=== PATIENT | female | born 1950 | race Caucasian/White ===

== ENCOUNTER → 2018-02-16 08:46 | Outpatient (CLI) | payer MEDICARE, SELFPAY ==
[2018-02-16 09:40] LABS: Absolute Lymphocyte Count 2.96 X10^3/ul (0.83-4.51); Absolute Neutrophil Count 3.3 X10^3/uL (2.0-7.7); Basophil# 0.05 X10^3/uL; Basophil% 0.7 % (0-1); Eosinophil# 0.12 X10^3/uL; Eosinophils% 1.7 % (0-5); Hematocrit 38.7 % (37-47); Hemoglobin 13.1 g/dl (12.0-15.0); Lymphocyte # 2.96 X10^3/ul (4.0); Lymphocyte % 42.5 % (19-41); Mean Corp Hgb Conc 33.9 g/gl (32-36); Mean Corpuscular Hgb 31.9 pg (27.0-32.0); Mean Corpuscular Volume 94.2 fL (81-99); Mean Platelet Vol. 9.9 fl (6.2-12.0); Monocyte# 0.49 X10^3/uL; Neutrophil # 3.34 X10^3/uL (2.7-7.7); Platelet Count 272 K/mm3 (150-450); RBC Distribution Width CV 12.4 % (11.6-14.6); RBC Distribution Width SD 41.9 fl (35.1-43.9); Red Blood Count 4.11 M/mm3 (4.2-5.4)
[2018-02-16 09:46] LABS: POSITIVE COUNT NO; POSITIVE DIFFERENTIAL NO; POSITIVE MORPHOLOGY NO
[2018-02-16 09:55] LABS: Ferritin 417 ng/mL (8-252)
[2018-02-16 10:30] VITALS: BP 139/89; PULSE 82; RESP 16; TEMP 36.2
[2018-02-16 10:50] VITALS: BP 148/86; PULSE 79; RESP 16; TEMP 36.7
== END ==
DX: E83.118 Other hemochromatosis (principal)
CPT/HCPCS: 36415; 82728; 85025; 99195; A4216

== ENCOUNTER → 2018-03-02 09:32 | Outpatient (CLI) | payer MEDICARE, SELFPAY ==
[2018-03-02 10:11] LABS: Absolute Lymphocyte Count 2.75 X10^3/ul (0.83-4.51); Absolute Neutrophil Count 2.6 X10^3/uL (2.0-7.7); Basophil# 0.03 X10^3/uL; Basophil% 0.5 % (0-1); Eosinophil# 0.12 X10^3/uL; Hematocrit 38.1 % (37-47); Hemoglobin 12.6 g/dl (12.0-15.0); Lymphocyte # 2.75 X10^3/ul (4.0); Lymphocyte % 46.8 % (19-41); Mean Corp Hgb Conc 33.1 g/gl (32-36); Mean Corpuscular Hgb 30.8 pg (27.0-32.0); Mean Corpuscular Volume 93.2 fL (81-99); Mean Platelet Vol. 9.7 fl (6.2-12.0); Monocyte# 0.39 X10^3/uL; Monocyte% 6.6 % (0-10); Neutrophil # 2.58 X10^3/uL (2.7-7.7); Neutrophil % 43.9 % (47-70); Platelet Count 263 K/mm3 (150-450); RBC Distribution Width CV 12.7 % (11.6-14.6); RBC Distribution Width SD 42.9 fl (35.1-43.9); Red Blood Count 4.09 M/mm3 (4.2-5.4); White Blood Count 5.9 K/mm3 (4.4-11.0)
[2018-03-02 10:13] LABS: POSITIVE COUNT NO; POSITIVE DIFFERENTIAL NO; POSITIVE MORPHOLOGY NO
[2018-03-02 10:36] VITALS: BP 135/75; PULSE 77; RESP 18; TEMP 36.6; O2SAT 97
[2018-03-02 10:39] VITALS: BMI 42.3
== END ==
PROVIDERS: Visit Provider Internal Medicine Hematology & Oncology
DX: E83.118 Other hemochromatosis (principal)
CPT/HCPCS: 85025; 99195; A4216

== ENCOUNTER → 2018-03-16 09:25 | Outpatient (CLI) | payer MEDICARE, SELFPAY ==
[2018-03-16 10:37] LABS: Absolute Lymphocyte Count 2.45 X10^3/ul (0.83-4.51); Absolute Neutrophil Count 2.4 X10^3/uL (2.0-7.7); Basophil# 0.04 X10^3/uL; Basophil% 0.7 % (0-1); Eosinophil# 0.09 X10^3/uL; Eosinophils% 1.6 % (0-5); Hematocrit 36.1 % (37-47); Hemoglobin 11.9 g/dl (12.0-15.0); Lymphocyte # 2.45 X10^3/ul (4.0); Lymphocyte % 44.8 % (19-41); Mean Corpuscular Hgb 31.3 pg (27.0-32.0); Mean Platelet Vol. 10.2 fl (6.2-12.0); Monocyte# 0.45 X10^3/uL; Monocyte% 8.2 % (0-10); Neutrophil # 2.43 X10^3/uL (2.7-7.7); Neutrophil % 44.5 % (47-70); Platelet Count 234 K/mm3 (150-450); RBC Distribution Width CV 12.5 % (11.6-14.6); RBC Distribution Width SD 41.9 fl (35.1-43.9); White Blood Count 5.5 K/mm3 (4.4-11.0)
[2018-03-16 10:38] LABS: POSITIVE COUNT NO; POSITIVE DIFFERENTIAL NO; POSITIVE MORPHOLOGY NO
[2018-03-16 11:05] VITALS: BP 148/84; PULSE 85; RESP 16; TEMP 36.2; O2SAT 98
== END ==
PROVIDERS: Visit Provider Internal Medicine Hematology & Oncology
DX: E83.118 Other hemochromatosis (principal)
CPT/HCPCS: 85025; 99195; A4216

== ENCOUNTER → 2018-06-15 09:17 | Outpatient (CLI) | payer MEDICARE, SELFPAY ==
[2018-06-15 10:13] LABS: Hemoglobin A1c 7.1 % (4.2-6.3)
[2018-06-15 10:30] LABS: ALB/GLOB Ratio 0.9 RATIO (0.9-2.4); AST(SGOT) 37 U/L (15-37); Alanine Aminotransfer ALT/SGPT 55 U/L (13-56); Albumin, Serum 3.4 g/dL (3.2-5.0); Alkaline Phosphatase 131 U/L (45-117); Anion Gap 8 (5-15); BUN 18 mg/dL (7-18); BUN/Creat Ratio 27.4 RATIO (10-20); Calcium,Total 8.6 mg/dL (8.5-10.1); Chloride 109 mmol/L (98-107); Cholesterol 197 mg/dL (200); Creatinine, Serum 0.66 mg/dL (0.55-1.02); EST Glomerular Filtration Rate 96 mL/min (>60); Est Glom Filt Rate - Afr Amer 116 mL/min (>60); Globulin 3.6 g/dL (2.2-4.2); Glucose 158 mg/dL (74-106); High Density Lipoprotein 48 mg/dL; Potassium 4.2 mmol/L (3.5-5.1); Sodium Level 141 mmol/L (136-145); Triglycerides 176 mg/dL; Very Low Density Lipoprotein 35 mg/dL (5-40)
[2018-06-15 10:37] LABS: Vitamin D,25 Hydroxy 33.2 ng/mL (29.95-100.01)
== END ==
PROVIDERS: Family Provider Family Medicine; PCP Family Medicine; Referring Provider Family Medicine; Visit Provider Family Medicine
DX: E11.9 Type 2 diabetes mellitus without complications (principal); E55.9 Vitamin D deficiency, unspecified
CPT/HCPCS: 36415; 80053; 80061; 82306; 83036

== ENCOUNTER → 2018-12-14 09:32 | Outpatient (CLI) | payer MEDICARE, SELFPAY ==
[2018-08-02 13:08] VITALS: BMI 44.7
[2018-12-14 10:23] LABS: AST(SGOT) 56 U/L (15-37); Alanine Aminotransfer ALT/SGPT 62 U/L (13-56); Albumin, Serum 3.7 g/dL (3.2-5.0); Alkaline Phosphatase 131 U/L (45-117); Anion Gap 7 (5-15); BUN 19 mg/dL (7-18); Calcium,Total 8.9 mg/dL (8.5-10.1); Chloride 112 mmol/L (98-107); Cholesterol 199 mg/dL (200); EST Glomerular Filtration Rate 88 mL/min (>60); Est Glom Filt Rate - Afr Amer 107 mL/min (>60); Globulin 3.8 g/dL (2.2-4.2); Glucose 153 mg/dL (74-106); High Density Lipoprotein 51 mg/dL; Potassium 4.2 mmol/L (3.5-5.1); Protein, Total 7.5 g/dL (6.4-8.2); Sodium Level 142 mmol/L (136-145); Triglycerides 139 mg/dL; Very Low Density Lipoprotein 28 mg/dL (5-40)
[2018-12-14 10:38] LABS: Vitamin D,25 Hydroxy 34.6 ng/mL (29.95-100.01)
== END ==
PROVIDERS: Family Provider Family Medicine; PCP Family Medicine; Referring Provider Family Medicine; Visit Provider Family Medicine
DX: E11.9 Type 2 diabetes mellitus without complications (principal); E78.00 Pure hypercholesterolemia, unspecified; E55.9 Vitamin D deficiency, unspecified
CPT/HCPCS: 36415; 80053; 80061; 82306; 83036

== ENCOUNTER → 2019-06-21 09:27 | Outpatient (CLI) | payer MEDICARE, SELFPAY ==
[2019-02-07 14:15] VITALS: BMI 44.1
[2019-06-21 10:34] LABS: ALB/GLOB Ratio 0.9 RATIO (0.9-2.4); AST(SGOT) 47 U/L (15-37); Alanine Aminotransfer ALT/SGPT 57 U/L (13-56); Albumin, Serum 3.4 g/dL (3.2-5.0); Alkaline Phosphatase 168 U/L (45-117); Anion Gap 7 (5-15); BUN 16 mg/dL (7-18); BUN/Creat Ratio 25.8 RATIO (10-20); Calcium,Total 8.6 mg/dL (8.5-10.1); Chloride 110 mmol/L (98-107); Cholesterol 195 mg/dL (200); Creatinine, Serum 0.62 mg/dL (0.55-1.02); EST Glomerular Filtration Rate 102 mL/min (>60); Est Glom Filt Rate - Afr Amer 124 mL/min (>60); Globulin 3.7 g/dL (2.2-4.2); Glucose 189 mg/dL (74-106); High Density Lipoprotein 57 mg/dL; Potassium 4.1 mmol/L (3.5-5.1); Protein, Total 7.1 g/dL (6.4-8.2); Sodium Level 141 mmol/L (136-145); Triglycerides 133 mg/dL; Very Low Density Lipoprotein 27 mg/dL (5-40)
[2019-06-21 10:41] LABS: Hemoglobin A1c 7.7 % (4.2-6.3)
== END ==
PROVIDERS: Family Provider Family Medicine; PCP Family Medicine; Referring Provider Family Medicine; Visit Provider Family Medicine
DX: E11.9 Type 2 diabetes mellitus without complications (principal); E55.9 Vitamin D deficiency, unspecified; E78.00 Pure hypercholesterolemia, unspecified
CPT/HCPCS: 36415; 80053; 80061; 82306; 83036

== ENCOUNTER → 2019-07-12 11:11 | Outpatient (CLI) | payer MEDICARE, SELFPAY ==
[2019-02-07 14:15] VITALS: BMI 44.1
--- NOTE | 2019-07-12 11:15 | BI_ITS ---
MAMMOGRAPHY - BILATERAL SCREENING REASON FOR EXAM: Female, 69 years old. Routine annual screening examination. PERTINENT HISTORY: Sister with breast cancer. TECHNIQUE: Digital bilateral breast antonio (3D mammographic acquisition) in the CC and MLO projections. 2-D mediolateral oblique (MLO) and craniocaudad (CC) views of both breasts were obtained. CAD: Full Field Digital Mammography with Computer Added Detection was performed. COMPARISON: Comparison is made with prior EXAMINATION dated June 22, 2018. FINDINGS: Breast Composition: There are scattered areas of fibroglandular density. There are no dominant masses or suspicious calcifications. Benign-appearing bilateral axillary lymph nodes. No other significant abnormalities are identified. There has been no significant change since the prior study. BI/SCREEN MAMM (CAD) W/ANTONIO BILAT IMPRESSION: Stable bilateral screening mammogram. Yearly follow-up mammogram recommended. (A) ASSESSMENT CATEGORY: BIRADS Category 2: Benign. A letter regarding these results will be sent to the patient by the facility within 30 days. Approximately 10% of breast cancers are not detected by mammography. A normal mammogram should not delay biopsy of a clinically suspicious abnormality. [id number] Electronically Signed: Jame Iyer, at 9:18 EST , Service support ,
== END ==
PROVIDERS: Family Provider Family Medicine; PCP Family Medicine; Referring Provider Family Medicine; Visit Provider Family Medicine
DX: Z12.31 Encounter for screening mammogram for malignant neoplasm of breast (principal)
CPT/HCPCS: 77063; 77067

== ENCOUNTER → 2020-07-16 10:33 | Outpatient (CLI) | payer MEDICARE, SELFPAY ==
[2020-06-04 14:08] VITALS: BMI 45.2
--- NOTE | 2020-07-16 10:34 | BI_ITS ---
MAMMOGRAPHY - BILATERAL SCREENING REASON FOR EXAM: Female, 70 years old. Routine annual screening examination. PERTINENT HISTORY: Sister with breast cancer. TECHNIQUE: Digital bilateral breast antonio (3D mammographic acquisition) in the CC and MLO projections. 2-D mediolateral oblique (MLO) and craniocaudad (CC) views of both breasts were obtained. CAD: Full Field Digital Mammography with Computer Added Detection was performed. COMPARISON: Comparison is made with prior study dated 07/12/2019. FINDINGS: Breast Composition: There are scattered areas of fibroglandular density. There are no dominant masses or suspicious calcifications. No other significant abnormalities are identified. There has been no significant change since the prior study. BI/SCREEN MAMM (CAD) W/ANTONIO BILAT IMPRESSION: Stable bilateral screening mammogram. Yearly follow-up mammogram recommended. (A) ASSESSMENT CATEGORY: BIRADS Category 1: Negative. A letter regarding these results will be sent to the patient by the facility within 30 days. Approximately 10% of breast cancers are not detected by mammography. A normal mammogram should not delay biopsy of a clinically suspicious abnormality. [id number] Electronically Signed: Jame Iyer, at 11:56 EST , Service support ,
== END ==
PROVIDERS: PCP Family Medicine; Referring Provider Internal Medicine Hematology & Oncology; Visit Provider Internal Medicine Hematology & Oncology
DX: Z12.31 Encounter for screening mammogram for malignant neoplasm of breast (principal); Z80.3 Family history of malignant neoplasm of breast
CPT/HCPCS: 77063; 77067

== ENCOUNTER → 2020-09-03 10:39 | Outpatient (CLI) | payer MEDICARE, OTHER, SELFPAY ==
[2020-06-04 14:08] VITALS: BMI 45.2
[2020-09-03 11:20] LABS: Hemoglobin A1c 7.1 % (3.8-5.6)
[2020-09-03 11:28] LABS: Anion Gap 5 (5-15); BUN 14 mg/dL (7-18); BUN/Creat Ratio 25.5 RATIO (10-20); Calcium,Total 9.1 mg/dL (8.5-10.1); Chloride 110 mmol/L (98-107); Creatinine, Serum 0.55 mg/dL (0.55-1.02); EST Glomerular Filtration Rate 117 mL/min (>60); Est Glom Filt Rate - Afr Amer 142 mL/min (>60); Glucose 147 mg/dL (74-106); Potassium 4.1 mmol/L (3.5-5.1); Sodium Level 140 mmol/L (136-145)
== END ==
PROVIDERS: PCP Family Medicine; Referring Provider Family Medicine; Visit Provider Family Medicine
DX: E11.9 Type 2 diabetes mellitus without complications (principal)
CPT/HCPCS: 36415; 80048; 83036

== ENCOUNTER → 2020-09-16 11:51 | Outpatient (CLI) | payer MEDICARE, SELFPAY ==
[2020-06-04 14:08] VITALS: BMI 45.2
== END ==
PROVIDERS: PCP Family Medicine; Visit Provider Family Medicine
DX: E55.9 Vitamin D deficiency, unspecified (principal)

== ENCOUNTER → 2020-09-24 09:28 | Outpatient (CLI) | payer MEDICARE, SELFPAY ==
[2020-06-04 14:08] VITALS: BMI 45.2
--- NOTE | 2020-09-24 09:32 | BD_ITS ---
STUDY: DUAL ENERGY X-RAY ABSORPTIOMETRY / DXA REASON FOR EXAM: Female, 70 years old. Total hysterectomy age 38. Patient is 252.1# and 62 and quot; a loss of .5 and quot; per pat. Past hx of using an estrogen patch. Type II diabetic and takes metformin and radiance. Does not exercise. Hx of hemochromatosis. TECHNIQUE: Bone Mineral Density (BMD) measurements of lumbar spine and bilateral hips were obtained. COMPARISON: None. FINDINGS: Lumbar Spine (L1-L4): g/cm2 (1.080) / T-score (-0.7) / Z-score (0.9) Findings are suggestive of normal bone density with a low fracture risk. Left Femur Total: g/cm2 (0.911) / T-score (-0.8) / Z-score (0.6) Left Femoral Neck: g/cm2 (0.815) / T-score (-1.6) / Z-score (0.0) Right Femur Total: g/cm2 (0.925) / T-score (-0.7) / Z-score (0.7) Right Femoral Neck: g/cm2 (0.732) / T-score (-2.2) / Z-score (-0.6) BD/Dexa Bone Density Study IMPRESSION: The patient is considered osteopenic as outlined below according to [employer] Organization (WHO) criteria with a high fracture risk. Reference Information: The T-score is the number of standard deviations above or below the standard which is normal for young adults at their peak bone mineral density. The World Health Organization (WHO) interprets the T-scores as follows: Above -1 Normal bone density Between -1 and -2.5 Osteopenia Equal to / or below -2.5 Osteoporosis As a practical clinical guideline, osteopenia may be graded as follows: Mild -1 through -1.5 Moderate -1.6 through -2.0 Severe -2.1 through -2.4 The Z-score is the number of standard deviations above or below age-matched controls. A Z-score of less than -1.5 would be considered abnormal. References: 1. NIH Osteoporosis and Related Bone Diseases www osteo.org 2. International Society for Clinical Densitometry www iscd.org 3. National Osteoporosis Foundation www nof.org Electronically Signed: aJme Iyer MD at 12:49 EST , Service support ,
== END ==
PROVIDERS: PCP Family Medicine; Referring Provider Family Medicine; Visit Provider Family Medicine
DX: Z78.0 Asymptomatic menopausal state (principal)
CPT/HCPCS: 77080

== ENCOUNTER 2020-11-05 10:19 | Outpatient (RCR) | payer MEDICARE, SELFPAY ==
[2020-06-04 14:08] VITALS: BMI 45.2
[2020-11-05] MEDS: COVID-19 VACC, MRNA(PFIZER)/PF 30 MCG/0.3 ML SYRINGE IM (09:26)
[2020-11-26] MEDS: COVID-19 VACC, MRNA(PFIZER)/PF 30 MCG/0.3 ML SYRINGE IM (09:34)
== END 2020-11-05 23:59 ==
LOC: IMMUN 10:19
PROVIDERS: PCP Family Medicine; Visit Provider Family Medicine
DX: Z23 Encounter for immunization (principal)
CPT/HCPCS: 0001A; 0002A

== ENCOUNTER → 2021-06-25 | Outpatient (CLI) | payer MEDICARE, SELFPAY | END | disposition home or self-care (01) | LOC: LABSPEC 09:47 | PROVIDERS: PCP Family Medicine; Referring Provider Physician Assistant Surgical; Visit Provider Physician Assistant Surgical | DX: Z11.52 Encounter for screening for COVID-19 (principal) | CPT/HCPCS: 87635; U0005; U0003 ==

== ENCOUNTER 2021-09-09 08:35 | Outpatient (CLI) | payer MEDICARE, SELFPAY ==
--- NOTE | 2021-09-09 08:37 | BI_ITS ---
MAMMOGRAPHY - BILATERAL SCREENING REASON FOR EXAM: Female, 71 years old. Routine annual screening examination. PERTINENT HISTORY: Sister with breast cancer. TECHNIQUE: Digital bilateral breast antonio (3D mammographic acquisition) in the CC and MLO projections. 2-D mediolateral oblique (MLO) and craniocaudad (CC) views of both breasts were obtained. CAD: Full Field Digital Mammography with Computer Added Detection was performed. COMPARISON: Comparison is made with prior study dated 07/16/2020 and 07/12/2019. FINDINGS: Breast Composition: There are scattered areas of fibroglandular density. There are no dominant masses or suspicious calcifications. No other significant abnormalities are identified. There has been no significant change since the prior study. BI/SCRN MAMM (CAD)W/ANTONIO BILAT IMPRESSION: Stable bilateral screening mammogram. Yearly follow-up mammogram recommended. (A) ASSESSMENT CATEGORY: BIRADS Category 1: Negative. A letter regarding these results will be sent to the patient by the facility within 30 days. Approximately 10% of breast cancers are not detected by mammography. A normal mammogram should not delay biopsy of a clinically suspicious abnormality. [id number] Electronically Signed: Jame Iyer MD at 9:51 EST , Service support ,
== END 2021-09-09 23:59 | disposition short-term general hospital (02) ==
LOC: OPBI 08:36
PROVIDERS: PCP Family Medicine; Referring Provider Family Medicine; Visit Provider Family Medicine
DX: Z12.31 Encounter for screening mammogram for malignant neoplasm of breast (principal)
CPT/HCPCS: 77063; 77067

== ENCOUNTER 2021-09-10 06:31 | Emergency (ER) | payer MEDICARE, SELFPAY ==
[2021-09-10 06:32] VITALS: BP 170/102; PULSE 122; RESP 22; TEMP 35; O2SAT 94; BMI 44.9
--- NOTE | 2021-09-10 06:50 | RAD_ITS ---
STUDY: X-RAY CHEST REASON FOR EXAM: Female, 71 years old. Palpitations TECHNIQUE: Single AP portable view of the chest. There is obesity, the entirety of soft tissue is not imaged. COMPARISON: None. FINDINGS: There are superimposed monitor leads. There is bilateral bronchovascular prominence. Limited penetration mild hazy opacification is nonspecific likely secondary to body habitus. There is no focal parenchymal abnormality. There is no demonstrated pleural abnormality. Normal size heart. Normal mediastinum and sridhar. Normal visualized pulmonary arteries. Normal visualized aortic arch and descending thoracic aorta. There is a mild dextroscoliosis of the thoracic spine. Normal visualized ribs, clavicles, and shoulders. Obesity. Superimposed pannus over the left base. RAD/Chest 1 View (Portable) IMPRESSION: Lateral bronchovascular prominence, mild vascular congestion possible. Limited penetration due to body habitus. Electronically Signed: Christina Davis MD at 7:34 EST , Service support ,
--- NOTE | 2021-09-10 06:50 | EKG12_ITS ---
Test Reason : PALPATATIONS Blood Pressure : / mmHG Vent. Rate : 120 BPM Atrial Rate : 120 BPM P-R Int : 168 ms QRS Dur : 088 ms QT Int : 338 ms P-R-T Axes : 047 041 074 degrees QTc Int : 477 ms Sinus tachycardia Nonspecific ST abnormality Poor R wave progression Abnormal ECG Confirmed by SAROJ ARIAS, WINDY ([id number]), dictionary editor SAY PAGE ([id number]) on 09/15/2021 11:11:34 AM Referred By: SHIRA Confirmed By:WINDY KYLE MD
--- NOTE | 2021-09-10 07:00 | EX.ED.DYSGE1 ---
HPI History of Present Illness Chief Complaint: Palpitations Narrative Narrative: Patient is a 71-year-old female with history of diabetes. She states that she was up late last evening talking to her grandson and after the phone call ate a little bit of a late dinner/midnight snack. She states she was able to go to bed but then woke up with 1 bout of vomiting and 3 loose stools. She states afterwards she felt her heart was racing. She states that this racing sensation has persisted for the past few hours and secondary to a comes in for evaluation. Patient denies any chest pain or shortness of breath associated with this. She denies any recent travel surgery or history of DVT/PE. Patient denies any stimulant use or illicit drug use. [facility] Medical History Abnormal liver function test Basal cell carcinoma Chronic low back pain Fatigue Fatty liver Hereditary hemochromatosis Lipoma Peripheral neuropathy Polycythemia, secondary Proteinuria RIGHT BREAST BIOPSY BENIGN Snoring Type 2 diabetes mellitus Home Medications Vit D3 5,000 iu PO DAILY 03/20/18 [History Last Taken Unknown] glucosamine HCl 1,000 mg PO DAILY 03/20/18 [History Last Taken Unknown] losartan 100 mg PO DAILY 03/20/18 [History Last Taken Unknown] metformin 2,000 mg PO DAILY 03/20/18 [History Last Taken Unknown] Lactobacillus acidophilus 1 ea PO DAILY 10/24/19 [History Last Taken Unknown] Claritin 10 mg PO DAILY PRN PRN 06/04/20 [History Last Taken Unknown] Nasacort 1 inh NASAL DAILY PRN 06/04/20 [History Last Taken Unknown] empagliflozin 10 mg tablet 10 mg PO DAILY 06/10/21 [History Last Taken Unknown] Allergy/AdvReac Type Severity Reaction Status Date / Time ezetimibe [From Zetia] AdvReac Severe Other Verified 09/10/21 06:35 pioglitazone [From Actos] AdvReac Severe Other Verified 09/10/21 06:35 Family History Sister Esophageal cancer Grandmother Lung cancer Father Liver cancer Mother Liver cancer Surgical History History of basal cell carcinoma excision History of hysterectomy History of tonsillectomy Social History (Updated 06/10/21 @ 14:45 by Dianelys Rojas) Smoking Status: Never smoker second hand exposure: No alcohol intake: never substance use type: does not use yara/gnosticism: Gnosticist seatbelt use: always do you feel safe at home: Yes ROS ROS ED Constitutional Constitutional ED: Denies chills or fever(s) ENT ENT ED: Denies sore throat Cardiovascular Cardiovascular: Reports palpitations and racing heartbeat; Denies chest pain Respiratory/Chest Respiratory/Chest: Denies cough or dyspnea Gastrointestinal Gastrointestinal: Reports diarrhea, nausea and vomiting; Denies abdominal pain Genitourinary Genitourinary ED: Denies dysuria Musculoskeletal Musculoskeletal: Denies myalgias Integumentary Denies rash Neurologic Neurologic: Denies headache(s) Psychiatric Psychiatric: Reports anxiety; Denies suicidal ideation or suicidal thoughts Hematologic/Lymphatic Hematologic/Lymphatic: Denies easy bleeding or easy bruising EXAM Physical Exam Const Vital Signs: 09/10/21 06:32 09/10/21 06:36 Temperature 95 F L Temperature Source Temporal Pulse Rate 122 H Respiratory Rate 22 H Respiratory Effort Normal Respiratory Pattern Tachypnea Blood Pressure 170/102 H Blood Pressure Mean 124 Pulse Ox 94 Oxygen Delivery Method Room Air Positive well nourished, well developed and obese General Appearance ED: well developed Nutritional Appearance: obese HEENT Reports dry mucous membranes Mouth ED: Yes dry mucous membranes Mouth: dry mucous membranes Eyes PERRL and EOMs intact bilaterally General Eye ED: Negative for pale conjunctiva Neck supple Resp normal respiratory effort and clear to auscultation bilaterally Cardio regular rhythm Rate: tachycardic and other Other Details: Radial pulses are plus 2 out of 4 bilaterally are equal and symmetric GI normal to inspection, nondistended, normoactive bowel sounds, non-tender, non-distended and no masses GI Narrative: No voluntary guarding or rigidity no pulsatile mass Auscultation: normoactive bowel sounds Palpation: soft Extremity Extremity Narrative: Trace to +1 pitting edema to the bilateral lower extremities that is equal and symmetric. Negative Homans' sign bilaterally Neuro oriented x3 and CN's II-XII intact bilaterally Sensorium / Orientation: alert Motor Exam: strength 5/5 throughout Psych Psych Narrative: Patient is mildly anxious without homicidal or suicidal ideation Mood & Affect: anxious Skin no rashes or lesions noted MDM MDM MDM Narrative Medical decision making narrative: Patient presented to the hospital complaining of palpitations and was going approximate 120 bpm but this was normal sinus rhythm. Her exam shows some changes concerning for mild dehydration and she also seems mildly anxious. Secondary to this I did elect to perform basic laboratory studies. She does not have chest pain or pleuritic chest pain to therefore I feel no need for a D-dimer. Patient also has no history of surgery travel hormone use or previous DVT/PE. Therefore at this time patient be given a liter of fluid to correct the dehydration and see how this improves her heart rate while laboratory studies are pending. I feel that if work-up is negative and heart rate is improving patient should be safe for discharge Lab Data Labs: Laboratory Results - last 24 hr 09/10/21 06:38 WBC 10.8 RBC 4.91 Hgb 15.1 H Hct 46.8 MCV 95.3 MCH 30.8 MCHC 32.3 RDW Std Deviation 47.3 H RDW Coeff of Barrie 13.3 Plt Count 307 MPV 9.7 Immature Gran % (Auto) 0.500 Neut % (Auto) 56.6 Lymph % (Auto) 36.3 [place] % (Auto) 5.2 Eos % (Auto) 0.6 Baso % (Auto) 0.8 Absolute Neuts (auto) 6.1 Absolute Lymphs (auto) 3.93 Nucleated RBC % 0 Discharge Plan Triage Chief Complaint: Palpitations ED Provider: Inder Tran Dx/Rx/DC Orders Clinical Impression: Palpitations, Sinus tachycardia Prescriptions: No Action Jardiance 10 mg tablet 10 mg PO DAILY RF: 0 metformin 500 MG tablet 2,000 mg PO DAILY RF: 0 losartan 100 MG tablet 100 mg PO DAILY RF: 0 glucosamine HCl 1,500 MG tablet 1,000 mg PO DAILY RF: 0 Vit D3 5,000 iu PO DAILY RF: 0 Lactobacillus acidophilus 1 EACH tablet 1 ea PO DAILY RF: 0 Claritin 10 mg PO DAILY PRN PRN (Reason: Allergies) RF: 0 Nasacort Howard 1 inh NASAL DAILY PRN (Reason: Allergies) RF: 0 Primary Care Provider: Ayana Valentien Referrals: Ayana Valentine, [Primary Care Provider] -
[2021-09-10 07:03] LABS: Absolute Lymphocyte Count 3.93 X10^3/uL (0.83-4.51); Absolute Neutrophil Count 6.1 X10^3/uL (2.0-7.7); Basophil# 0.09 X10^3/uL; Basophil% 0.8 % (0-1); Eosinophil# 0.07 X10^3/uL; Eosinophils% 0.6 % (0-5); Hematocrit 46.8 % (37-47); Hemoglobin 15.1 g/dL (12.0-15.0); Lymphocyte # 3.93 X10^3/ul (0.83-4.51); Lymphocyte % 36.3 % (19-41); Mean Corp Hgb Conc 32.3 g/dL (32-36); Mean Corpuscular Hgb 30.8 pg (27.0-32.0); Mean Corpuscular Volume 95.3 fL (81-99); Mean Platelet Vol. 9.7 fl (6.2-12.0); Monocyte# 0.56 X10^3/uL; Monocyte% 5.2 % (0-10); NRBC Flagged by Analyzer 0 % (0-5); Neutrophil # 6.12 X10^3/uL (2.7-7.7); Neutrophil % 56.6 % (47-70); Platelet Count 307 K/mm3 (150-450); RBC Distribution Width CV 13.3 % (11.6-14.6); RBC Distribution Width SD 47.3 fl (35.1-43.9); Red Blood Count 4.91 M/mm3 (4.2-5.4); White Blood Count 10.8 K/mm3 (4.4-11.0)
[2021-09-10] MEDS: 0.9% Normal Saline 1,000 ML 999 ML IV (07:10)
[2021-09-10 07:29] LABS: Anion Gap 12 (5-15); BUN 18 mg/dL (7-18); BUN/Creat Ratio 21.4 RATIO (10-20); Chloride 108 mmol/L (98-107); Creatinine, Serum 0.84 mg/dL (0.55-1.02); EST Glomerular Filtration Rate 71 mL/min (>60); Est Glom Filt Rate - Afr Amer 86 mL/min (>60); Estimated Creatinine Clearance 52.29 ml/min; Glucose 209 mg/dL (74-106); Magnesium 2.2 mg/dL (1.6-2.6); Potassium 3.3 mmol/L (3.5-5.1); Sodium Level 143 mmol/L (136-145); Thyroid Stim Hormone (TSH) 1.45 uIU/mL (0.358-3.74); Troponin-I HS 8 pg/mL (3.0-54.0)
[2021-09-10] MEDS: Potassium Chloride Oral Tablet 20 MEQ 40 MEQ PO (07:54)
[2021-09-10 08:33] VITALS: BP 159/89; PULSE 112; RESP 19; O2SAT 93
[2021-09-10 08:38] VITALS: O2SAT 93
--- NOTE | 2021-09-10 08:38 | ED.RN ---
ambulated pt, pt states i feel good.
== END 2021-09-10 09:10 | disposition home or self-care (01) ==
PROVIDERS: Emergency Provider Emergency Medicine; PCP Family Medicine; Visit Provider Emergency Medicine
DX: R00.2 Palpitations (principal); R00.0 Tachycardia, unspecified; E66.9 Obesity, unspecified
CPT/HCPCS: 71045; 80048; 83735; 84443; 84484; 85025; 93005; 96360; 99284

== ENCOUNTER → 2022-06-10 | Outpatient (CLI) | payer MEDICARE, SELFPAY ==
[2022-06-10 09:54] LABS: Microalbumin,Random Urine 6.7 mg/L (NO RANGE EST.); Microalbumin:Creatinine Ratio 8.9 mg/g CRE (<30 mg/g CRE)
[2022-06-10 10:22] LABS: ALB/GLOB Ratio 0.8 RATIO (0.9-2.4); AST(SGOT) 50 U/L (15-37); Alanine Aminotransfer ALT/SGPT 57 U/L (13-56); Albumin, Serum 3.3 g/dL (3.2-5.0); Alkaline Phosphatase 147 U/L (45-117); Anion Gap 10 (5-15); BUN 15 mg/dL (7-18); BUN/Creat Ratio 23.7 RATIO (10-20); Calcium,Total 8.9 mg/dL (8.5-10.1); Chloride 111 mmol/L (98-107); Cholesterol 220 mg/dL (200); Creatinine, Serum 0.63 mg/dL (0.55-1.02); EST Glomerular Filtration Rate 99 mL/min (>60); Est Glom Filt Rate - Afr Amer 120 mL/min (>60); Ferritin 249 ng/mL (8-252); Globulin 3.9 g/dL (2.2-4.2); Glucose 158 mg/dL (74-106); High Density Lipoprotein 64 mg/dL; Protein, Total 7.2 g/dL (6.4-8.2); Sodium Level 143 mmol/L (136-145); Triglycerides 136 mg/dL; Very Low Density Lipoprotein 27 mg/dL (5-40)
== END | disposition home or self-care (01) ==
LOC: LAB 08:58
PROVIDERS: PCP Family Medicine; Visit Provider Family Medicine
DX: E11.9 Type 2 diabetes mellitus without complications (principal); E55.9 Vitamin D deficiency, unspecified; E78.00 Pure hypercholesterolemia, unspecified
CPT/HCPCS: 36415; 80053; 80061; 82043; 82306; 82570; 82728

== ENCOUNTER → 2022-09-23 | Outpatient (CLI) | payer MEDICARE, SELFPAY ==
--- NOTE | 2022-09-23 09:07 | BI_ITS ---
MAMMOGRAPHY - BILATERAL SCREENING REASON FOR EXAM: Female, 72 years old. Routine annual screening examination. PERTINENT HISTORY: Sister with breast cancer. TECHNIQUE: Digital bilateral breast antonio (3D mammographic acquisition) in the CC and MLO projections. 2-D mediolateral oblique (MLO) and craniocaudad (CC) views of both breasts were obtained. CAD: Full Field Digital Mammography with Computer Added Detection was performed. COMPARISON: Comparison is made with prior study of SEP 09 2021 and 07/16/2020. FINDINGS: Breast Composition: There are scattered areas of fibroglandular density. There are no dominant masses or suspicious calcifications. Stable small benign appearing bilateral axillary lymph nodes. No other significant abnormalities are identified. There has been no significant change since the prior study. BI/SCREEN MAMM (CAD) W/ANTONIO UNI L IMPRESSION: Stable bilateral screening mammogram. Yearly follow-up mammogram recommended. (A) ASSESSMENT CATEGORY: BIRADS Category 2: Benign. A letter regarding these results will be sent to the patient by the facility within 30 days. Approximately 10% of breast cancers are not detected by mammography. A normal mammogram should not delay biopsy of a clinically suspicious abnormality. [id number] Electronically Signed: Jame Iyer MD at 10:10 EST ,
== END | disposition home or self-care (01) ==
PROVIDERS: PCP Family Medicine; Visit Provider Family Medicine
DX: Z12.31 Encounter for screening mammogram for malignant neoplasm of breast (principal); Z80.3 Family history of malignant neoplasm of breast
CPT/HCPCS: 77063; 77067

== ENCOUNTER → 2022-12-07 | Outpatient (CLI) | payer MEDICARE, SELFPAY ==
[2022-12-07 09:39] LABS: Absolute Lymphocyte Count 3.04 X10^3/uL (0.83-4.51); Absolute Neutrophil Count 2.6 X10^3/uL (2.0-7.7); Basophil# 0.08 X10^3/uL; Basophil% 1.2 % (0-1); Eosinophil# 0.23 X10^3/uL; Eosinophils% 3.5 % (0-5); Hematocrit 45.3 % (37-47); Hemoglobin 15.1 g/dL (12.0-15.0); Lymphocyte # 3.04 X10^3/ul (0.83-4.51); Mean Corp Hgb Conc 33.3 g/dL (32-36); Mean Corpuscular Hgb 31.8 pg (27.0-32.0); Mean Corpuscular Volume 95.4 fL (81-99); Mean Platelet Vol. 9.8 fl (6.2-12.0); Monocyte# 0.64 X10^3/uL; Monocyte% 9.7 % (0-10); NRBC Flagged by Analyzer 0 % (0-5); Neutrophil # 2.61 X10^3/uL (2.7-7.7); Neutrophil % 39.4 % (47-70); Platelet Count 224 K/mm3 (150-450); RBC Distribution Width CV 12.8 % (11.6-14.6); RBC Distribution Width SD 45.8 fl (35.1-43.9); Red Blood Count 4.75 M/mm3 (4.2-5.4); White Blood Count 6.6 K/mm3 (4.4-11.0)
[2022-12-07 10:37] LABS: ALB/GLOB Ratio 0.8 RATIO (0.9-2.4); AST(SGOT) 51 U/L (15-37); Alanine Aminotransfer ALT/SGPT 50 U/L (13-56); Albumin, Serum 3.1 g/dL (3.2-5.0); Alkaline Phosphatase 149 U/L (45-117); Anion Gap 9 (5-15); BUN 14 mg/dL (7-18); BUN/Creat Ratio 24.2 RATIO (10-20); Calcium,Total 8.9 mg/dL (8.5-10.1); Chloride 109 mmol/L (98-107); Cholesterol 226 mg/dL (200); Creatinine, Serum 0.58 mg/dL (0.55-1.02); EST Glomerular Filtration Rate 109 mL/min (>60); Est Glom Filt Rate - Afr Amer 132 mL/min (>60); Ferritin 242 ng/mL (8-252); Globulin 3.7 g/dL (2.2-4.2); Glucose 162 mg/dL (74-106); High Density Lipoprotein 55 mg/dL; Iron 159 ug/dL (50-170); Iron Binding Capacity,Total 288 ug/dL (250-450); PERCENT IRON SATURATION 55.2 % (15.0-55.0); Potassium 3.9 mmol/L (3.5-5.1); Protein, Total 6.8 g/dL (6.4-8.2); Sodium Level 140 mmol/L (136-145); Triglycerides 150 mg/dL; Very Low Density Lipoprotein 30 mg/dL (5-40)
[2022-12-07 10:46] LABS: Vitamin D,25 Hydroxy 58.7 ng/mL
== END | disposition home or self-care (01) ==
LOC: PAVLAB 09:14
PROVIDERS: PCP Family Medicine; Referring Provider Family Medicine; Visit Provider Family Medicine
DX: E55.9 Vitamin D deficiency, unspecified (principal); E11.65 Type 2 diabetes mellitus with hyperglycemia; E78.00 Pure hypercholesterolemia, unspecified
CPT/HCPCS: 36415; 80053; 80061; 82306; 82728; 83036; 83540; 83550; 85025

== ENCOUNTER 2023-05-10 15:25 | Emergency (ER) | payer MEDICARE, SELFPAY ==
[2023-05-10 15:26] VITALS: BP 164/84; PULSE 117; RESP 18; TEMP 36.7; O2SAT 97; BMI 45.4
--- NOTE | 2023-05-10 15:48 | ED.VIS.GI ---
HPI HPI - GI History of Present Illness Chief Complaint: Abd Pain Informant: patient Abdominal Pain/Flank Pain Onset: Today Context: Sudden Onset Timing: Continuous Quality: Sharp Location: Epigastric, RUQ and LUQ Worsened by: Food and - (Deep breathing) Relieved by: Nothing Nausea/Vomiting/Emesis GI Symptom: Positive for Nausea; Negative for Vomiting Diarrhea/Melena/Hematochezia GI Symptom: Positive for Diarrhea; Negative for Melena or Hematochezia Associated Symptoms Associated Symptoms: Negative for Dysuria, Frequency or Urgency Narrative Narrative: Patient presents with abdominal pain that began today. Patient states it came on rather suddenly. Patient states that began approxi-20 minutes after eating. Patient states the pain is mainly over the right upper abdomen but radiates to the epigastric and notably into the left upper abdomen. Patient states the pain is worse with deep breathing. Patient states nothing makes it better. Patient admits to some nausea but denies any vomiting. Patient admits to some diarrhea but denies any melena or hematochezia. Patient states her diarrhea is loose. Patient states she has a history of IBS, diarrhea type. Patient also admits to some mild pain in her right shoulder. [facility] Medical History Abnormal liver function test Basal cell carcinoma Chronic low back pain Fatigue Fatty liver Hereditary hemochromatosis Lipoma Peripheral neuropathy Polycythemia, secondary Proteinuria RIGHT BREAST BIOPSY BENIGN Snoring Type 2 diabetes mellitus Home Medications Vit D3 5,000 iu PO DAILY 03/20/18 [History Last Taken Unknown] glucosamine HCl 1,500 mg tablet 1,000 mg PO DAILY 03/20/18 [History Last Taken Unknown] losartan 100 mg tablet 100 mg PO DAILY 03/20/18 [History Last Taken Unknown] metformin 500 mg tablet 2,000 mg PO DAILY 03/20/18 [History Last Taken Unknown] Lactobacillus acidophilus 2 billion cell tablet 1 ea PO DAILY 10/24/19 [History Last Taken Unknown] Claritin 10 mg PO DAILY PRN PRN Allergies 06/04/20 [History Last Taken Unknown] Nasacort 1 inh DAILY PRN Allergies 06/04/20 [History Last Taken Unknown] empagliflozin 10 mg tablet (Jardiance) 10 mg PO DAILY 06/10/21 [History Last Taken Unknown] omeprazole 20 mg capsule,delayed release 20 mg PO DAILY #30 CAPSULES 05/10/23 [Rx Last Taken Unknown] Allergy/AdvReac Type Severity Reaction Status Date / Time ezetimibe [From Zetia] AdvReac Severe Other Verified 05/10/23 15:26 pioglitazone [From Actos] AdvReac Severe Other Verified 05/10/23 15:26 Family History Sister Esophageal cancer Grandmother Lung cancer Father Liver cancer Mother Liver cancer Surgical History History of basal cell carcinoma excision History of hysterectomy History of tonsillectomy Social History Smoking Status: Never smoker second hand exposure: No alcohol intake: never substance use type: does not use yara/rastafari: Sikhism seatbelt use: always do you feel safe at home: Yes ROS ROS ED Constitutional Constitutional ED: Denies chills or fever(s) Eyes Eyes: Denies blurry vision or change in vision ENT ENT ED: Denies rhinorrhea or sore throat Cardiovascular Cardiovascular: Denies chest pain or palpitations Respiratory/Chest Respiratory/Chest: Denies cough or dyspnea Gastrointestinal Gastrointestinal: Reports abdominal pain, diarrhea and nausea; Denies vomiting Genitourinary Genitourinary ED: Denies dysuria or hematuria Musculoskeletal Musculoskeletal: Denies back pain or neck pain Integumentary Denies abscess or rash Neurologic Neurologic: Denies headache(s) or weakness Allergic/Immunologic Allergic/Immunologic ED: Denies mouth swelling or urticaria EXAM Physical Exam Const Vital Signs: 05/10/23 15:26 Temperature 98.1 F Temperature Source Temporal Pulse Rate 117 H Respiratory Rate 18 Blood Pressure 164/84 H Blood Pressure Mean 110 Pulse Ox 97 Oxygen Delivery Method Room Air Positive well nourished, well developed and obese General Appearance ED: well developed and NAD Nutritional Appearance: obese HEENT Reports moist mucous membranes Neck supple and no JVD Resp normal respiratory effort and clear to auscultation bilaterally Cardio regular rate and regular rhythm GI Auscultation: normoactive bowel sounds Palpation: soft and tender epigastric, LUQ and RUQ; Negative for guarding or rebound tenderness present Extremity full ROM Neuro CN's II-XII intact bilaterally, moves all extremities and no sensory deficits noted Sensorium / Orientation: alert Motor Exam: strength 5/5 throughout Psych mental status grossly normal MDM MDM MDM Narrative Medical decision making narrative: Differential diagnosis includes gastritis, peptic ulcer disease, duodenal ulcer, pancreatitis, cholecystitis, cholelithiasis, bowel obstruction, pyelonephritis, and urinary tract infection. CBC will be obtained to assess for leukocytosis and anemia. Comprehensive metabolic profile will be obtained to assess for hepatic function, renal function, and electrolyte abnormality. Lipase will be obtained to assess for pancreatitis. Urinalysis will be obtained to assess for urinary tract infection. Right upper quadrant ultrasound will be obtained to assess for cholecystitis and cholelithiasis. History & Record Review Discussion w/independent historian: Patient Additional record(s) reviewed:: Prior labs Lab Data Attestation: I reviewed the patient's lab results. Lab results narrative: CBC was reviewed and was within normal limits. Comprehensive metabolic profile was reviewed. Glucose was elevated at 268. CO2 was slightly low at 19. Anion gap was normal. Alkaline phosphatase was slightly elevated at 138 and AST was slightly elevated at 38. Total bilirubin was normal. ALT was normal. Lipase was reviewed and was normal. Urinalysis was reviewed. There is a leukocyte esterase of 100 with 5-10 white blood cells. There were 10-25 epithelial cells. Labs: Laboratory Results - last 24 hr 05/10/23 05/10/23 15:52 17:39 WBC 9.7 RBC 4.26 Hgb 13.5 Hct 42.1 MCV 98.8 MCH 31.7 MCHC 32.1 RDW Std Deviation 46.2 H RDW Coeff of Barrie 12.9 Plt Count 275 MPV 10.3 Immature Gran % (Auto) 0.200 Neut % (Auto) 55.6 Lymph % (Auto) 35.1 [place] % (Auto) 7.6 Eos % (Auto) 0.9 Baso % (Auto) 0.6 Absolute Neuts (auto) 5.4 Absolute Lymphs (auto) 3.39 Nucleated RBC % 0 Sodium 140 Potassium 3.9 Chloride 111 H Carbon Dioxide 19.0 L Anion Gap 10 BUN 17 Creatinine 0.78 Estim Creat Clear Calc 43.30 Est GFR (MDRD) Af Amer 93 Est GFR (MDRD) Non-Af 77 BUN/Creatinine Ratio 21.7 H Glucose 268 H Calcium 8.6 Total Bilirubin 0.70 AST 38 H ALT 43 Alkaline Phosphatase 138 H Total Protein 6.5 Albumin 3.0 L Globulin 3.5 Albumin/Globulin Ratio 0.9 Lipase 38 Urine Color Yellow Urine Clarity Sl. Cloudy Urine pH 5.0 Ur Specific [place] 1.010 Urine Protein 15 H Urine Glucose (UA) 1000 H Urine Ketones Negative Urine Occult Blood 10 H Urine Nitrite Negative Urine Bilirubin Negative Urine Urobilinogen Normal Ur Leukocyte Esterase 100 H Urine RBC Not Reportable Urine WBC 5-10 SEEN Ur Squamous Epith Cells 10-25 SEEN Urine Bacteria 0 SEEN Urine Mucus 0 SEEN Radiography Diagnostic Testing: Clinical Impression(s) from Imaging Studies Gallbladder Ultrasound 05/10/23 15:58 IMPRESSION: Diffuse fatty liver with superimposed cirrhosis not excluded, correlation with liver function tests recommended. Mild ascites. No gallstones or signs of acute cholecystitis. Right upper renal pole simple cyst measuring 3.0 cm, remainder of the right upper quadrant ultrasound unremarkable. Electronically Signed: Nevaeh Kee MD at 17:16 EDT , Right upper quadrant ultrasound was obtained. There is diffuse fatty liver. There is mild ascites. There is no gallstones or signs of acute cholecystitis. There is a right upper renal pole cyst. The remainder was within normal limits. This was interpreted by the radiologist and was also independently reviewed by myself. Treatment and Re-Evaluation :: Patient was given IV fluids, morphine, and Zofran. Patient is feeling better on reevaluation. Patient was advised of her findings. Patient was given a prescription for Prilosec. Patient was instructed to follow-up with her primary care physician in 5 to 7 days. Patient understood and was agreeable with the plan. All questions were answered. Discharge Plan Triage Chief Complaint: Abd Pain ED Provider: Chuck Davila Dx/Rx/DC Orders Clinical Impression: Abdominal pain in female, Fatty liver Instructions: ED Abdominal Pain Unkn Cause Fem Prescriptions: New omeprazole [omeprazole] 20 mg capsule,delayed release(DR/EC) 20 mg PO DAILY Qty: 30 0RF No Action Jardiance 10 mg tablet 10 mg PO DAILY metformin 500 MG tablet 2,000 mg PO DAILY losartan 100 MG tablet 100 mg PO DAILY glucosamine HCl 1,500 MG tablet 1,000 mg PO DAILY Vit D3 5,000 iu PO DAILY Lactobacillus acidophilus 1 EACH tablet 1 ea PO DAILY Claritin 10 mg PO DAILY PRN PRN (Reason: Allergies) Nasacort [place] 1 inh NASAL DAILY PRN (Reason: Allergies) Primary Care Provider: Ayana Valentine Referrals: Ayana Valentine DO [Primary Care Provider] - 5-7 Days Disposition Disposition: Home, Self Care
--- NOTE | 2023-05-10 15:58 | US_ITS ---
STUDY: ABDOMINAL ULTRASOUND - RIGHT UPPER QUADRANT REASON FOR VISIT: Female, 72 years old PAIN-RUQ TECHNIQUE: Ultrasound evaluation of the right upper quadrant was performed with real-time and static roberts-scale imaging. TECHNICAL QUALITY: Limited. Examination limited due to the patient?s condition and gas artifact in the bowel. COMPARISON: None. FINDINGS: Liver: The liver measures 18.0 cm. There is limited visualization of the liver. There is increased echogenicity consistent with fatty infiltration. Mild nodular margins, cannot exclude early cirrhosis. The bile ducts are within normal limits. There is hepatic color flow. The direction of portal flow is hepatopetal. There is no demonstrated mass lesion. Gallbladder: Normal distended gallbladder. The gallbladder wall measures 2.0 mm. There is a negative sonographic Valentine''s sign. There is no pericholecystic fluid. There are no gallstones. Common Bile Duct (C.B.D.): The common bile duct measures 3.0 mm. Pancreas: Normal size of the head, body with partial obscuration of the tail of the visualized pancreas. There is normal echogenicity of the pancreas. There is no demonstrated pancreatic mass or cyst in the visualized portion. Right Kidney: Normal size of the right kidney. The right kidney measures 11.4 x 5.2 x 5.1 cm. Normal renal cortex. The right cortex measures 1.6 cm. Within the upper pole of the right kidney there is a round anechoic structure measuring 3.0 x 2.6 x 2.6 cm consistent with a simple cyst. There is no right hydronephrosis. There is mild ascites. US/Gallbladder IMPRESSION: Diffuse fatty liver with superimposed cirrhosis not excluded, correlation with liver function tests recommended. Mild ascites. No gallstones or signs of acute cholecystitis. Right upper renal pole simple cyst measuring 3.0 cm, remainder of the right upper quadrant ultrasound unremarkable. Electronically Signed: Nevaeh Kee MD at 17:16 EDT ,
[2023-05-10] MEDS: Ondansetron 4 MG/2 ML Vial IV (16:06)
[2023-05-10] MEDS: 0.9% Normal Saline 1,000 ML 1000 ML IV (16:06)
[2023-05-10] MEDS: Morphine 4 MG/ML Syringe IV (16:06)
[2023-05-10 16:27] LABS: Absolute Lymphocyte Count 3.39 X10^3/uL (0.83-4.51); Absolute Neutrophil Count 5.4 X10^3/uL (2.0-7.7); Basophil# 0.06 X10^3/uL; Basophil% 0.6 % (0-1); Eosinophil# 0.09 X10^3/uL; Eosinophils% 0.9 % (0-5); Hematocrit 42.1 % (37-47); Hemoglobin 13.5 g/dL (12.0-15.0); Lymphocyte # 3.39 X10^3/ul (0.83-4.51); Lymphocyte % 35.1 % (19-41); Mean Corp Hgb Conc 32.1 g/dL (32-36); Mean Corpuscular Hgb 31.7 pg (27.0-32.0); Mean Corpuscular Volume 98.8 fL (81-99); Mean Platelet Vol. 10.3 fl (6.2-12.0); Monocyte# 0.73 X10^3/uL; Monocyte% 7.6 % (0-10); NRBC Flagged by Analyzer 0 % (0-5); Neutrophil # 5.36 X10^3/uL (2.7-7.7); Neutrophil % 55.6 % (47-70); Platelet Count 275 K/mm3 (150-450); RBC Distribution Width CV 12.9 % (11.6-14.6); RBC Distribution Width SD 46.2 fl (35.1-43.9); Red Blood Count 4.26 M/mm3 (4.2-5.4); White Blood Count 9.7 K/mm3 (4.4-11.0)
[2023-05-10 16:45] LABS: ALB/GLOB Ratio 0.9 RATIO (0.9-2.4); AST(SGOT) 38 U/L (15-37); Alanine Aminotransfer ALT/SGPT 43 U/L (13-56); Alkaline Phosphatase 138 U/L (45-117); Anion Gap 10 (5-15); BUN 17 mg/dL (7-18); BUN/Creat Ratio 21.7 RATIO (10-20); Calcium,Total 8.6 mg/dL (8.5-10.1); Chloride 111 mmol/L (98-107); Creatinine, Serum 0.78 mg/dL (0.55-1.02); EST Glomerular Filtration Rate 77 mL/min (>60); Est Glom Filt Rate - Afr Amer 93 mL/min (>60); Globulin 3.5 g/dL (2.2-4.2); Glucose 268 mg/dL (74-106); Lipase 38 U/L (13-75); Potassium 3.9 mmol/L (3.5-5.1); Protein, Total 6.5 g/dL (6.4-8.2); Sodium Level 140 mmol/L (136-145)
[2023-05-10 17:50] LABS: Bacteria 0 SEEN /hpf (None Seen); Mucous, Urine 0 SEEN /hpf (<or=2+)
[2023-05-10 17:59] LABS: Color, Urine Yellow (Yellow); Glucose, Dipstick 1000 mg/dl (Normal); Ketone-Dipstick Negative (Negative); Leukocyte Esterase-Dipstick 100 /ul (Negative); Nitrite-Dipstick Negative (Negative); Occult Blood-Urine 10 /ul (Negative); Protein-Dipstick 15 mg/dl (Negative); Urine Bilirubin Dipstick Negative (Negative); Urine Clarity Sl. Cloudy (Clear); Urine Urobilinogen Normal (Normal)
[2023-05-10 18:09] LABS: Squamous Epithelial Cells - UA 10-25 SEEN /hpf (5-10); White Blood Cells 5-10 SEEN /hpf (0-5)
== END 2023-05-10 19:04 | disposition home or self-care (01) ==
PROVIDERS: Emergency Provider Emergency Medicine; PCP Family Medicine; Visit Provider Emergency Medicine
DX: R10.11 Right upper quadrant pain (principal); E11.42 Type 2 diabetes mellitus with diabetic polyneuropathy; R11.2 Nausea with vomiting, unspecified; K76.0 Fatty (change of) liver, not elsewhere classified; Z79.84 Long term (current) use of oral hypoglycemic drugs; Z90.710 Acquired absence of both cervix and uterus; R10.12 Left upper quadrant pain
CPT/HCPCS: 76705; 80053; 81001; 83690; 85025; 99282; J7030; A4216; J2405

== ENCOUNTER → 2023-06-08 | Outpatient (CLI) | payer MEDICARE, SELFPAY ==
[2023-06-08 09:42] LABS: Absolute Lymphocyte Count 2.94 X10^3/uL (0.83-4.51); Absolute Neutrophil Count 3.2 X10^3/uL (2.0-7.7); Basophil# 0.05 X10^3/uL; Basophil% 0.7 % (0-1); Eosinophils% 2.8 % (0-5); Hematocrit 42.7 % (37-47); Hemoglobin 14.1 g/dL (12.0-15.0); Lymphocyte # 2.94 X10^3/ul (0.83-4.51); Lymphocyte % 41.6 % (19-41); Mean Corpuscular Hgb 31.9 pg (27.0-32.0); Mean Corpuscular Volume 96.6 fL (81-99); Mean Platelet Vol. 9.3 fl (6.2-12.0); Monocyte# 0.67 X10^3/uL; Monocyte% 9.5 % (0-10); NRBC Flagged by Analyzer 0 % (0-5); Neutrophil # 3.19 X10^3/uL (2.7-7.7); Neutrophil % 45.1 % (47-70); Platelet Count 274 K/mm3 (150-450); RBC Distribution Width CV 12.7 % (11.6-14.6); RBC Distribution Width SD 45.7 fl (35.1-43.9); Red Blood Count 4.42 M/mm3 (4.2-5.4); White Blood Count 7.1 K/mm3 (4.4-11.0)
[2023-06-08 10:01] LABS: ALB/GLOB Ratio 0.8 RATIO (0.9-2.4); AST(SGOT) 37 U/L (15-37); Alanine Aminotransfer ALT/SGPT 37 U/L (13-56); Albumin, Serum 3.2 g/dL (3.2-5.0); Alkaline Phosphatase 147 U/L (45-117); Anion Gap 8 (5-15); BUN 14 mg/dL (7-18); BUN/Creat Ratio 26.3 RATIO (10-20); Calcium,Total 8.6 mg/dL (8.5-10.1); Chloride 112 mmol/L (98-107); Cholesterol 175 mg/dL (200); Creatinine, Serum 0.53 mg/dL (0.55-1.02); EST Glomerular Filtration Rate 120 mL/min (>60); Est Glom Filt Rate - Afr Amer 145 mL/min (>60); Ferritin 252 ng/mL (8-252); Globulin 3.9 g/dL (2.2-4.2); Glucose 141 mg/dL (74-106); High Density Lipoprotein 49 mg/dL; Iron 136 ug/dL (50-170); Iron Binding Capacity,Total 284 ug/dL (250-450); PERCENT IRON SATURATION 47.9 % (15.0-55.0); Potassium 3.9 mmol/L (3.5-5.1); Protein, Total 7.1 g/dL (6.4-8.2); Sodium Level 141 mmol/L (136-145); Triglycerides 134 mg/dL; Very Low Density Lipoprotein 27 mg/dL (5-40)
[2023-06-08 10:03] LABS: Hemoglobin A1c 6.5 % (3.8-5.6)
[2023-06-08 10:14] LABS: Vitamin D,25 Hydroxy 76.1 ng/mL
[2023-06-08 11:00] LABS: Microalbumin,Random Urine < 5.0 mg/L (NO RANGE EST.)
[2023-06-08 17:38] LABS: Xtra Tube EP Lab EXTRA TUBE
== END | disposition home or self-care (01) ==
PROVIDERS: PCP Family Medicine; Referring Provider Family Medicine; Visit Provider Family Medicine
DX: E11.65 Type 2 diabetes mellitus with hyperglycemia (principal); E55.9 Vitamin D deficiency, unspecified; E78.00 Pure hypercholesterolemia, unspecified
CPT/HCPCS: 36415; 80053; 80061; 82043; 82306; 82570; 82728; 83036; 83540; 83550; 85025

== ENCOUNTER → 2023-10-19 | Outpatient (CLI) | payer MEDICARE, SELFPAY ==
--- NOTE | 2023-10-19 09:01 | BI_ITS ---
MAMMOGRAPHY - BILATERAL SCREENING REASON FOR EXAM: Female, 73 years old. Routine annual screening examination. PERTINENT HISTORY: Sister with breast cancer. TECHNIQUE: Digital bilateral breast antonio (3D mammographic acquisition) in the CC and MLO projections. 2-D mediolateral oblique (MLO) and craniocaudad (CC) views of both breasts were obtained. CAD: Full Field Digital Mammography with Computer Added Detection was performed. COMPARISON: Comparison is made with prior examination dated September 23, 2022 and September 09, 2021. FINDINGS: Breast Composition: There are scattered areas of fibroglandular density. There are no dominant masses or suspicious calcifications. Stable benign appearing bilateral axillary nodes. No other significant abnormalities are identified. There has been no significant change since the prior study. BI/SCRN MAMM (CAD)W/ANTONIO BILAT IMPRESSION: Stable bilateral screening mammogram. Yearly follow-up mammogram recommended. (A) ASSESSMENT CATEGORY: BIRADS Category 2: Benign. A letter regarding these results will be sent to the patient by the facility within 30 days. Approximately 10% of breast cancers are not detected by mammography. A normal mammogram should not delay biopsy of a clinically suspicious abnormality. [id number] Electronically Signed: Jame Iyer MD at 10:47 EST ,
--- NOTE | 2023-10-19 09:05 | BD_ITS ---
STUDY: DUAL ENERGY X-RAY ABSORPTIOMETRY / DXA REASON FOR EXAM: Female, 73 years old. [id number] TECHNIQUE: Bone Mineral Density (BMD) measurements of lumbar spine and bilateral hips were obtained. COMPARISON: Comparison is made with prior study dated March 24, 2021. FINDINGS: Lumbar Spine (L1-L4): g/cm2 (0.934) / T-score (-0.9) / Z-score (1.2) Findings are suggestive of normal bone density with a low fracture risk. Left Femur Total: g/cm2 (0.816) / T-score (-1.0) / Z-score (0.5) Left Femoral Neck: g/cm2 (0.559) / T-score (-2.6) / Z-score (-0.7) Right Femur Total: g/cm2 (0.828) / T-score (-0.9) / Z-score (0.6) Right Femoral Neck: g/cm2 (0.583) / T-score (-2.4) / Z-score (-0.5) The T-Scores on the most recent prior examination were: Lumbar Spine (L1-L4): There has been worsening of bone density since the previous examination. Left Femur Total: which represents a worsening of 3.7%. Right Femur Total: which represents a worsening of 3.8%. BD/Dexa Bone Density Study IMPRESSION: The patient is considered osteoporotic as outlined below according to World [employer] Organization (WHO) criteria with a high fracture risk. There has been worsening of bone density since the previous examination. Reference Information: The T-score is the number of standard deviations above or below the standard which is normal for young adults at their peak bone mineral density. The World Health Organization (WHO) interprets the T-scores as follows: Above -1 Normal bone density Between -1 and -2.5 Osteopenia Equal to / or below -2.5 Osteoporosis As a practical clinical guideline, osteopenia may be graded as follows: Mild -1 through -1.5 Moderate -1.6 through -2.0 Severe -2.1 through -2.4 The Z-score is the number of standard deviations above or below age-matched controls. A Z-score of less than -1.5 would be considered abnormal. References: 1. NIH Osteoporosis and Related Bone Diseases www osteo.org 2. International Society for Clinical Densitometry www iscd.org 3. National Osteoporosis Foundation www nof.org Electronically Signed: Jame Iyer MD at 12:32 EST ,
--- OUTSIDE RECORDS SUMMARY | 2023-10-19 09:22 | XMS RPT_ITS | CCD ---
Author Name Unknown Address [address] [place] [address] Organization [facility] Care Team Providers Care Python Programmer Name Role Phone Serge Ayana Jean Marie Unavailable Unavaila ble SAMUEL AVENDAÑO Unavailable Unavailabl e SAMUEL AVENDAÑO Unavailable Unavailabl e SERGE, AYANA JEAN MARIE Unavailable Unavaila ble VALENTINE, AYANA JEAN MARIE Unavailable Unavaila ble VALENTINE, AYANA JEAN MARIE Unavailable Unavaila ble VALENTINE, AYANA JEAN MARIE Unavailable Unavaila ble VALENTINE, AYANA JEAN MARIE Unavailable Unavaila ble VALENTINE, AYANA JEAN MARIE Unavailable Unavaila ble VALENTINE, AYANA JEAN MARIE Unavailable Unavaila ble REFERRING, SELF Unavailable Unavailable VALENTINE, AYANA JEAN MARIE Unavailable Unavaila ble VALENTINE, AYANA JEAN MARIE Unavailable Unavaila ble VALENTINE, AYANA JEAN MARIE Unavailable Unavaila ble VALENTINE, AYANA JEAN MARIE Unavailable Unavaila ble SYSTEM, PROVIDER NOT IN Unavailable Unavaila ble SYSTEM, PROVIDER NOT IN Unavailable Unavaila ble VALENTINE, AYANA JEAN MARIE Unavailable Unavaila ble SYSTEM, PROVIDER NOT IN Unavailable Unavaila ble SYSTEM, PROVIDER NOT IN Unavailable Unavaila ble VALENTINE, AYANA JEAN MARIE Unavailable Unavaila ble VALENTINE, AYANA JEAN MARIE Unavailable Unavaila ble VALENTINE, AYANA JEAN MARIE Unavailable Unavaila ble VALENTINE, AYANA JEAN MARIE Unavailable Unavaila ble VALENTINE, AYANA JEAN MARIE Unavailable Unavaila ble VALENTINE, AYANA JEAN MARIE Unavailable Unavaila ble VALENTINE, AYANA JEAN MARIE Unavailable Unavaila ble Valentine, Ayana Jean Marie Unavailable [phone] No, Physician Primary Care Provider Unavailabl e Rolando Gillis Unavailable Unavailable PCP, Pt States None Referring Unavailable BORT, ROLANDO MANDI Attending Unavailable Self, Referral Referring Unavailable ROLANDO GILLIS Attending Unavailable AYANA FAIR Attending Unavailab AYANA Nettles Attending Unavailab AYANA Nettles Attending Unavailab AYANA Nettles Attending Unavailab AYANA Nettles Attending Unavailab le Allergies Allergy Classification Reported Allergen(s) Allergy Type Date of Onset Reaction(s) Facility (11 sources) ezetimibe; Translations: [EZETIMIBE] Propensity to adverse reactions to drug 6 [facility] Work Phone: (11 sources) pioglitazone; Translations: [PIOGLITAZONE] Propensity to adverse reactions to drug 7 [facility] Work Phone: (2 sources) Fenofibrate Drug Allergy 3 [facility] (2 sources) pioglitazone Drug Allergy 3 [facility] (1 source) Propensity to adverse reactions to drug 3 [facility] (1 source) Propensity to adverse reactions to drug 3 [facility] (1 source) Ibuprofen; Translations: [IBUPROFEN] Drug Allergy 3 [facility] Repository Medications Current Medications Medication Drug Class(es) Dates Sig (Normalized) Sig (Original) empagliflozin 10 mg oral tablet (1 source) Sodium-Glucose Cotransporter 2 Inhibitor Start: 09-05-2022 [id number] Medication empagliflozin 10 mg tablet Jardiance 10 mg tablet 10 mg 09/05/2022 Active (Outside) losartan potassium 100 mg oral tablet (8 sources) Angiotensin 2 Receptor Trupti Start: 09-05-2022 take 1 tablet by mouth once [id number] Medication losartan 100 mg tablet losartan 100 mg tablet 100 mg TAKE 1 TABLET BY MOUTH ONCE DA 09/05/2022 Active (Outside) Problems Active Problems Problem Classification Problem Date Documented Date Episodic/Chronic Diabetes mellitus with complications (2 sources) Type 2 diabetes mellitus with hyperglycemia; Translations: [Type 2 diabetes mellitus with hyperglycemia] Onset: 06-14-2023 Chronic Diabetes mellitus without complication (11 sources) Type 2 diabetes mellitus; Translations: [Type 2 diabetes mellitus without complications] Onset: 11-16-2015 11-16-2015 Chronic Disorders of lipid metabolism (8 sources) Hypercholesterolemia; Translations: [Pure hypercholesterolemia, unspecified] Onset: 11-16-2015 11-16-2015 Chronic Essential hypertension (11 sources) Hypertensive disorder; Translations: [Essential (primary) hypertension] Onset: 11-16-2015 11-16-2015 Chronic Immunizations and screening for infectious disease (4 sources) Encounter for immunization; Translations: [Encounter for immunization] Onset: 06-29-2017 Episodic Nutritional deficiencies (2 sources) Vitamin D deficiency, unspecified; Translations: [Vitamin D deficiency, unspecified] Onset: 06-14-2023 Chronic Other and unspecified benign neoplasm (2 sources) Hemangioma of skin and subcutaneous tissue Onset: 09-12-2022 Episodic Other and unspecified benign neoplasm (2 sources) Melanocytic nevi of trunk Onset: 09-12-2022 Episodic Other and unspecified benign neoplasm (5 sources) Melanocytic nevi of right upper limb, including shoulder Onset: 09-11-2022 Episodic Other and unspecified benign neoplasm (2 sources) Melanocytic nevi of left upper limb, including shoulder Onset: 09-12-2022 Episodic Other and unspecified benign neoplasm (2 sources) Melanocytic nevi of right lower limb, including hip Onset: 09-12-2022 Episodic Other and unspecified benign neoplasm (2 sources) Melanocytic nevi of left lower limb, including hip Onset: 09-12-2022 Episodic Other congenital anomalies (1 source) Herniated urinary bladder; Translations: [Cystocele] Onset: 11-16-2015 11-16-2015 Chronic Other non-epithelial cancer of skin (4 sources) Personal history of other malignant neoplasm of skin Onset: 09-11-2022 Episodic Other nutritional; endocrine; and metabolic disorders (8 sources) Hereditary hemochromatosis; Translations: [Other hemochromatosis] Onset: 06-29-2017 06-29-2017 Chronic Other screening for suspected conditions (not mental disorders or infectious disease) (14 sources) Encounter for screening mammogram for malignant neoplasm of breast; Translations: [Encounter for screening for malignant neoplasm of colon] Onset: 06-08-2017 Episodic Other skin disorders (2 sources) Other melanin hyperpigmentation Onset: 09-12-2022 Episodic Other skin disorders (2 sources) Other seborrheic keratosis Onset: 09-12-2022 Episodic Prolapse of female genital organs (5 sources) Cystocele; Translations: [Cystocele] Onset: 11-16-2015 11-16-2015 Chronic Past or Other Problems Problem Classification Problem Date Documented Da te Episodic/Chronic Administrative/social admission (1 source) Medical examinations/report s status Episodic Genitourinary symptoms and ill-defined conditions (6 sources) Proteinuria; Translations: [Proteinuria] Onset: 11-16-2015 11-16-2015 Episodic Medical examination/evaluation (4 sources) Encounter for general adult medical examination without abnormal findings; Translations: [Encounter for other specified special examinations] Onset: 04-15-2017 Episodic Other and unspecified benign neoplasm (6 sources) Lipoma (clinical); Translations: [Lipoma] Onset: 11-16-2015 11-16-2015 Episodic Other hematologic conditions (2 sources) Serum ferritin high; Translations: [High serum ferritin] Onset: 06-29-2017 06-29-2017 Episodic Other liver diseases (10 sources) Enzyme level - finding; Translations: [Elevated levels of transaminase & lactic acid dehydrogenase] Onset: 11-16-2015 11-16-2015 Episodic Other liver diseases (3 sources) Elevated levels of transaminase & lactic acid dehydrogenase; Translations: [Abnormal transaminases] Onset: 11-16-2015 11-16-2015 Episodic Residual codes; unclassified (17 sources) Family history of hemochromatosis; Translations: [Serum ferritin high] Onset: 06-08-2017 06-08-2017 Episodic Spondylosis; intervertebral disc disorders; other back problems (6 sources) Low back pain; Translations: [Low back pain] Onset: 11-16-2015 11-16-2015 Episodic Unclassified (1 source) Requires vaccination Unclassified (1 source) Screening status Results Test Name Value Interpretation Reference Range Facil ity Vital Signs Date Time Vital Sign Value Performing Clinician Fred oneill 06-08-2017 10:25-0400 BP Diastolic 84 mm[Hg] Ayana Valentine [facility] Work Phone: 06-08-2017 10:25-0400 BP Systolic 130 mm[Hg] Ayana Valentine [facility] Work Phone: 06-08-2017 09:37-0400 Pulse Oximetry 96 % Ayana Valentine [facility] Work Phone: 06-08-2017 09:28-0400 BMI (Body Mass Index) 43.28 kg/m2 Ayana Valentine [facility] Work Phone: 06-08-2017 09:28-0400 Height 160 cm Ayana Valentine [facility] Work Phone: 06-08-2017 09:28-0400 Pulse (Heart Rate) 102 /min Ayana Valentine [facility] Work Phone: 06-08-2017 09:28-0400 Weight 110.81 kg Ayana Valentine [facility] Work Phone: 1950 00:00-0500 >na< Rolando Gillis Dept. of Dermato logy Encounters Encounter Date Encounter Type Care Provider Facility Start: 06-20-2023 ambulatory AYANA VALENTINE GAYLE [facility] Start: 06-15-2023 ambulatory AYANA VALENTINE GAYLE [facility] Start: 06-14-2023 End: 06-14-2023 ambulatory AYANA GAYLE [facility] Start: 03-09-2023 ambulatory Referral Self Facility: [id number] Start: 03-09-2023 Office outpatient visit 15 minutes Rolando Gillis [facility] D[facility]atology Start: 09-12-2022 ambulatory Pt States None PCP Faci lity:[id number] Start: 09-11-2022 End: 09-12-2022 Office outpatient new 30 minutes Rolando Gillis [facility] Start: 09-11-2022 End: 09-12-2022 Office outpatient visit 15 minutes Rolando Gillis [facility] Start: 10-29-2020 End: 10-29-2020 Orders Only Gisselle Howard Work Phone: [facility] Start: 06-22-2018 End: 06-23-2018 Patient encounter AYANA VALENTINE [facility] Start: 12-28-2017 End: 12-29-2017 Ambulatory [facility] Start: 12-28-2017 End: 12-28-2017 Ambulatory Samuel Avendaño Work Phone: [facility] Start: 09-15-2017 Ambulatory Natalia Mcclendon [facility] Start: 08-01-2017 Ambulatory AYANA VALENTINE [facility] Ambulatory Start: 06-29-2017 End: 06-29-2017 Ambulatory AYANA VALENTINE [facility] Ambul atory Start: 06-29-2017 Patient encounter Ayana mathews Valentine Work Phone: [facility] Start: 06-28-2017 End: 06-29-2017 Ambulatory PROVIDER NOT IN SYSTEM [facility] Start: 06-23-2017 Ambulatory AYANA VALENTINE [facility] Start: 06-23-2017 End: 06-23-2017 Patient encounter procedure Ayana Valentine Work Phone: [facility] Mammography Procedures Date Procedure Procedure Detail Performing Clinician Start: 06-22-2018 Mammography Gisselle martell Start: 05-19-2016 3 comp foot exam completed Ayana Valentine Plan of Treatment Date Care Activity Detail Author Start: 06-08-2027 Tetanus vaccination [facility] Work Phone: Start: 06-26-2020 FECAL DNA FECAL DNA [facility] Work Phone: Start: 06-26-2020 Screening for malignant neoplasm of colon [facility] Start: 05-05-2020 Influenza vaccination given Sequential Influenza Vaccine (#1) [facility] Start: 06-22-2019 Screening mammography Mammogram [facility] Start: 06-29-2018 Pneumococcal vaccination PNEUMOCOCCAL VACCINE AGE 65+ (2 of 2 - PPSV23) [facility] Work Phone: Start: 06-08-2018 History and physical examination, annual for health maintenance Wellness Visit [facility] Start: 10-16-2017 HbA1c [facility] Work Phone: Start: 06-29-2017 Ambulatory 06/29/2017 Clinical Support Primary Care [facility] Start: 2017 Pneumococcal vaccination PNEUMOCOCCAL VACCINE AGE 65+ (1 of 2 - PCV13) [facility] Work Phone: Start: 05-19-2017 Diabetic foot examination (regime/therapy) FOOT EXAM [facility] Work Phone: Start: 2002 Administration of herpes zoster vaccine Zoster Vaccines (1 of 2) [facility] Start: 2002 Screening for malignant neoplasm of colon [facility] Start: 1968 COVID-19 Vaccine (1 of 2) COVID-19 Vaccine (1 of 2) [facility] Start: 1964 Adolescent depression screening assessment Depression Screening (PHQ9) [facility] Start: 1962 End: 1962 Ophthalmic examination and evaluation OPHTHALMOLOGY EXAM [facility] Work Phone: Start: 1962 End: 1962 Urine, microalbumin URINE MICROALBUMIN [facility] Work Phone: Start: 1952 Fall risk assessment Falls Risk Assessment [facility] Start: 1952 Screening colonoscopy COLONOSCOPY [facility] Work Phone: Start: 1952 Screening for osteoporosis DEXA SCAN [facility] Work Phone: End: 06-08-2018 External Lab Cologuard External Lab Cologuard Routine Screening for colon cancer 1 Occurrences starting 06/08/2017 until 06/08/2018 [facility] Work Phone: Immunizations Immunization Date Immunization Notes Care Provider Angelic lezama 06-29-2017 pneumococcal conjuga te vaccine, 13 valent; Translations: [PNEUMOCOCCAL CONJUGATE 13-VALENT (PREVNAR 13)] Ayana Valentine [facility] Work Phone: 06-08-2017 diphtheria, tetanus toxoids and acellular pertussis vaccine, unspecified formulation; Translations: [Diphth,Pertus(Acel)Tet anus(Pf)2lf-(2.5-5-3-5m cg)-5 Lf/0.5 Ml Im Susp] Ayana Valentine [facility] Work Phone: 06-08-2017 influenza, injectabl e, quadrivalent, preservative free; Translations: [INFLUENZA IIV4 3YO OR > FLUARIX/FLUZONE/AFLURIA 44069] Ayana Valentine [facility] Work Phone: 06-08-2017 tetanus toxoid, redu al diphtheria toxoid, and acellular pertussis vaccine, adsorbed; Translations: [TDAP] Ayana Valentine [facility] Work Phone: 06-08-2017 flu vaccine qv 2017 sdv (FLUZONE QUAD) injection; Translations: [Flu Vaccine [id number] (36 Mos Up)(Pf)60 McG (15 McG X4)/0.5 Ml Im Susp] Ayana Valentine [facility] Work Phone: 04-15-2017 HEMOGLOBIN A1C Ayana Valentine [facility] Work Phone: 08-11-2016 influenza virus vaccine, unspecified formulation Ayana Valentine [facility] Work Phone: 09-27-2012 influenza, injectabl e, quadrivalent, preservative free Ayana Valentine [facility] Work Phone: 1950 pneumococcal conjuga te vaccine, 7 valent Rolando Gillis Dept. of Dermatology Payers Date Payer Category Payer Unknown [id number] 2017 Medicare [id number] 2017 Medicare JED RAZO ESSENTIAL/PLUS/CONNECT/SNP HMO [id number] 2017-Present [id number] 2017 Medicare [id number] 1952 Unknown [id number] 1950 Unknown [id number] 1950 Unknown [id number] 1950 Unknown [id number] 1950 Unknown [id number] 1952 Unknown [id number] 1952 Unknown [id number] 1952 Unknown [id number] 1952 Unknown [id number] Unknown Social History Date Type Detail Facility Start: 12-01-2017 End: 06-22-2018 Tobacco smoking status [facility] Never smoker [facility] Work Phone: Sex Assigned At Not on file [facility] Work Phone: Start: 06-22-2018 Tobacco use and exposure Never used [facility] Start: 06-22-2018 Alcohol intake 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 Start: 1950 End: 1950 Sex Assigned At Female Dept. of Dermatolo gy Goals Date Patient Goal Desired Activity /State Evaluation note Note Date & Type Note Facility Evaluation note N/A [facility] Reason for referral (narrative) Note Date & Type Note Facility [facility] Assessments Diagnosis Other hemochromatosis Elevated liver enzymes Other nonspecific abnormal serum enzyme levels Diagnosis Need for pneumococcal vaccin ation - Primary Need for prophylactic vaccination against streptococcus pneumoniae (pneumococcus) Diagnosis Well adult exam - Primary Routine general medical examination at a health care facility Screening for breast cancer Breast screening, unspecified Screening for colon cancer Special screening for malignant neoplasms, colon Abnormal transaminases Family history of hemochroma tosis Family history of other endocrine and metabolic diseases Controlled type 2 diabetes m ellitus without complication, without long-term current use of insulin (HCC) Essential hypertension Unspecified essential hypertension Diagnosis Screening for breast cancer Breast screening, unspecified Summary Purpose Family History No Family History Records FoundNo Family History Records FoundNo Family History Records FoundNo Family History Records FoundNo Family History Records FoundNo Family History Records FoundNo Family History Records Found Advance Directives No Advanced Directives Records FoundDocuments on File Type Date Recorded 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 Central scheduling from [facility] will call you to schedule your mammogram Cologuard will send you the colon cancer screening Return to office after you turn 67 for the Prevnar pneumonia vaccine and next year you'll get the Pneumovax pneumonia vaccine Continue current medications. Keep up the good work with diet and weight loss. Let me know if you need a refill on the Metformin Recommend regular dental and vision exams. Recommend regular exercise 3-5 days per week for at least 30 minutes. Recommend regular sun screen use. in this encounter History of Present Illness * Ayana Valentine DO - 06/08/2017 9:59 AM EDT Subjective: Patient ID: Mariella Rosario is a 66 y.o. female. HPI 66 year old female here for Welcome to Medicare physical. She has not had insurance for severalyears. She is due for mammogram. She declines colonoscopy but will do Cologuard. She had a hysterectomy for benign causes and no longer has a uterus, so does not need a pap smear. She would like to update her vaccines but does not have Medicare part D so declines Zostavax. The patient has a historyof diabetes and hypertension. She has lost 27 pounds since last visit. Read the [facility] diabetic diet book. Is more aware of portion control and not emotional eating. Is making better food choices. Is walking for exercise on the weekends. Brings in her blood pressure log and it's been normal. Taking the probiotic and tolerates the Metformin better now. Was having uncontrollable diarrhea. She had screening labs done 04/15/17 and brings in a copy for review. She does have a family history ofHemachromatosis and a personal history of high transaminases. They are the best they've been in years, but would like to go ahead with the Hemachromatosis testing now. Medicare Wellness Check up form completed and reviewed, copy on chart. The following portions of the patient's history were reviewed and updated as appropriate: allergies, current medications, past family history, past medical history, past social history, past surgicalhistory and problem list. Review of Systems Constitutional: Negative for chills, fatigue and fever. Respiratory: Negative for cough, shortness of breath and wheezing. Cardiovascular: Negative for chest pain, palpitations and leg swelling. Gastrointestinal: Negative for abdominal pain, constipation, diarrhea, nausea and vomiting. Endocrine: Negative for polydipsia, polyphagia and polyuria. Skin: Negative for rash. No suspicious lesions. Neurological: Negative for dizziness, syncope, light-headedness and headaches. Psychiatric/Behavioral: Negative for dysphoric mood and suicidal ideas. The patient is not nervous/anxious. Objective: BP 130/84 Pulse (!) 102 Ht 5' 3 Wt 110.8 kg (244 lb 4.8 oz) SpO2 96% BMI 43.28 kg/m2 Physical Exam Constitutional: She is oriented to person, place, and time. She appears well- developed and well-nourished. HENT: Head: Normocephalic and atraumatic. Right Ear: Hearing, tympanic membrane and ear canal normal. Left Ear: Hearing, tympanic membrane and ear canal normal. Mouth/Throat: Oropharynx is clear and moist and mucous membranes are normal. Eyes: EOM are normal. Pupils are equal, round, and reactive to light. Neck: Neck supple. No thyromegaly present. Cardiovascular: Normal rate and regular rhythm. No murmur heard. Pulmonary/Chest: Effort normal and breath sounds normal. She has no wheezes. Right breast exhibits no inverted nipple, no mass, no nipple discharge, no skin change and no tenderness. Left breast exhibits no inverted nipple, no mass, no nipple discharge, no skin change and no tenderness. Breasts aresymmetrical. Abdominal: Soft. She exhibits no distension and no mass. There is no tenderness. Lymphadenopathy: She has no cervical adenopathy. Neurological: She is alert and oriented to person, place, and time. Three out of three words recalled from version one of [employer] drawing correct, copy on chart. Skin: Skin is warm and dry. No rash noted. Psychiatric: She has a normal mood and affect. Assessment/Plan: Diagnoses and all orders for this visit: Well adult exam - ECG 12 Lead EKG is normal sinus rhythm Flu and Tdap done today. Return to office after her 67th birthday for Prevnar vaccine. Will do Pneumovax next year and continue annual flu vaccines. Declines Zostavax. Will do Cologuard for colon cancer screening and if normal will recheck in 3 years Will get mammogram now and annually Will discuss bone density at next visit Reviewed labs, copy on chart. Patient has diabetes so will check labs every 6 months. Had Hep C screening in 2009. Is due for dental and vision exams, encouraged to get that. Screening for breast cancer - Mammography Screening Bilateral; Future Screening for colon cancer - External Lab Cologuard; Future Abnormal transaminases - Hemochromatosis Mutation; Future Family history of hemochromatosis - Hemochromatosis Mutation; Future Controlled type 2 diabetes mellitus without complication, without long-term current use of insulin (HCC) Controlled, A1c was 6 in April. Continue diet and weight loss. Continue current dose of Metformin.Call if any problems. Return to office in 6 months Essential hypertension Controlled, copy of log on chart. Continue current medication. Call if any problems. Return to office in 6 months. Other orders - Influenza IIV4 3yo or >,Fluzone Quad - Tdap vaccine greater than or equal to 7yo IM in this encounter Additional Source Comments INFORMATION SOURCE (unrecogn ized section and content) DATE CREATED AUTHOR AUTHOR'S ORGANIZ ATION 02/27/2018 [facility] DATE CREATED AUTHOR AUTHOR'S ORGANIZ ATION 02/27/2018 [facility] DATE CREATED AUTHOR AUTHOR'S ORGANIZ ATION 07/24/2018 [facility] DATE CREATED AUTHOR AUTHOR'S ORGANIZ ATION 06/12/2020 [facility] DATE CREATED AUTHOR AUTHOR'S ORGANIZ ATION 03/10/2023 [facility] DATE CREATED AUTHOR AUTHOR'S ORGANIZ ATION 07/16/2023 [facility] Reason for Visit (unrecogniz ed section and content) FOR RECORDS PERTAINING TO PATIENTS WHO ARE OR HAVE BEEN ENROLLED IN A CHEMICAL DEPENDENCY/SUBSTANCEABUSE PROGRAM, SOME INFORMATION MAY BE OMITTED. This clinical summary was aggregated from multiple sources. Caution should be exercised in using it in the provision of clinical care. This summary normalizes information from multiple sources, and as a consequence, information in this document may materially change the coding, format and clinical context of patient data. In addition, data may be omitted in some cases. CLINICAL DECISIONS SHOULD BE BASED ON THE PRIMARY CLINICAL RECORDS. [facility] [employer] [facility]. provides no warranty or guarantee of the accuracy or completeness of information in this document.
== END | disposition home or self-care (01) ==
LOC: OPBI 08:58
PROVIDERS: PCP Family Medicine; Referring Provider Family Medicine; Visit Provider Family Medicine
DX: Z12.31 Encounter for screening mammogram for malignant neoplasm of breast (principal); Z80.3 Family history of malignant neoplasm of breast; Z78.0 Asymptomatic menopausal state
CPT/HCPCS: 77063; 77067; 77080

== ENCOUNTER → 2023-12-13 | Outpatient (CLI) | payer MEDICARE, SELFPAY ==
[2023-12-13 09:43] LABS: Absolute Lymphocyte Count 2.51 X10^3/uL (0.83-4.51); Absolute Neutrophil Count 3.4 X10^3/uL (2.0-7.7); Basophil% 1.4 % (0-1); Eosinophil# 0.17 X10^3/uL; Eosinophils% 2.4 % (0-5); Hematocrit 42.9 % (37-47); Hemoglobin 14.1 g/dL (12.0-15.0); Lymphocyte # 2.51 X10^3/ul (0.83-4.51); Lymphocyte % 35.8 % (19-41); Mean Corp Hgb Conc 32.9 g/dL (32-36); Mean Corpuscular Hgb 31.1 pg (27.0-32.0); Mean Corpuscular Volume 94.7 fL (81-99); Mean Platelet Vol. 9.7 fl (6.2-12.0); Monocyte# 0.79 X10^3/uL; Monocyte% 11.3 % (0-10); NRBC Flagged by Analyzer 0 % (0-5); Neutrophil # 3.43 X10^3/uL (2.7-7.7); Neutrophil % 48.8 % (47-70); Platelet Count 226 K/mm3 (150-450); RBC Distribution Width CV 12.7 % (11.6-14.6); Red Blood Count 4.53 M/mm3 (4.2-5.4)
[2023-12-13 10:01] LABS: ALB/GLOB Ratio 0.8 RATIO (0.9-2.4); AST(SGOT) 87 U/L (15-37); Alanine Aminotransfer ALT/SGPT 90 U/L (13-56); Albumin, Serum 3.1 g/dL (3.2-5.0); Alkaline Phosphatase 229 U/L (45-117); Anion Gap 7 (5-15); BUN 16 mg/dL (7-18); BUN/Creat Ratio 28.5 RATIO (10-20); Calcium,Total 8.7 mg/dL (8.5-10.1); Chloride 110 mmol/L (98-107); Cholesterol 197 mg/dL (200); Creatinine, Serum 0.56 mg/dL (0.55-1.02); EST Glomerular Filtration Rate 113 mL/min (>60); Est Glom Filt Rate - Afr Amer 137 mL/min (>60); Ferritin 228 ng/mL (8-252); Globulin 3.8 g/dL (2.2-4.2); Glucose 151 mg/dL (74-106); Hemoglobin A1c 7.2 % (3.8-5.6); High Density Lipoprotein 55 mg/dL; Iron 134 ug/dL (50-170); Iron Binding Capacity,Total 282 ug/dL (250-450); PERCENT IRON SATURATION 47.5 % (15.0-55.0); Potassium 3.9 mmol/L (3.5-5.1); Protein, Total 6.9 g/dL (6.4-8.2); Sodium Level 139 mmol/L (136-145); Triglycerides 130 mg/dL; Very Low Density Lipoprotein 26 mg/dL (5-40)
== END | disposition home or self-care (01) ==
LOC: PAVLAB 09:05
PROVIDERS: PCP Family Medicine; Referring Provider Family Medicine; Visit Provider Family Medicine
DX: E78.00 Pure hypercholesterolemia, unspecified (principal); E11.9 Type 2 diabetes mellitus without complications; E83.110 Hereditary hemochromatosis
CPT/HCPCS: 36415; 80053; 80061; 82728; 83036; 83540; 83550; 85025

== ENCOUNTER → 2024-06-04 | Outpatient (CLI) | payer MEDICARE, SELFPAY ==
[2024-06-04 08:24] LABS: Absolute Lymphocyte Count 2.55 X10^3/uL (0.83-4.51); Absolute Neutrophil Count 3.3 X10^3/uL (2.0-7.7); Basophil# 0.06 X10^3/uL; Basophil% 0.9 % (0-1); Eosinophil# 0.16 X10^3/uL; Eosinophils% 2.4 % (0-5); Hematocrit 36.9 % (37-47); Hemoglobin 11.9 g/dL (12.0-15.0); Lymphocyte # 2.55 X10^3/ul (0.83-4.51); Lymphocyte % 37.9 % (19-41); Mean Corp Hgb Conc 32.2 g/dL (32-36); Mean Corpuscular Hgb 31.3 pg (27.0-32.0); Mean Corpuscular Volume 97.1 fL (81-99); Mean Platelet Vol. 10.4 fl (6.2-12.0); Monocyte# 0.68 X10^3/uL; Monocyte% 10.1 % (0-10); NRBC Flagged by Analyzer 0 % (0-5); Neutrophil # 3.25 X10^3/uL (2.7-7.7); Neutrophil % 48.4 % (47-70); Platelet Count 253 K/mm3 (150-450); RBC Distribution Width SD 57.3 fl (35.1-43.9); White Blood Count 6.7 K/mm3 (4.4-11.0)
[2024-06-04 08:43] LABS: ALB/GLOB Ratio 0.6 RATIO (0.9-2.4); AST(SGOT) 323 U/L (15-37); Alanine Aminotransfer ALT/SGPT 172 U/L (13-56); Albumin, Serum 2.5 g/dL (3.2-5.0); Alkaline Phosphatase 622 U/L (45-117); Anion Gap 8 (5-15); BUN 13 mg/dL (7-18); BUN/Creat Ratio 19.1 RATIO (10-20); Calcium,Total 9.7 mg/dL (8.5-10.1); Chloride 111 mmol/L (98-107); Cholesterol 385 mg/dL (200); Creatinine, Serum 0.68 mg/dL (0.55-1.02); EST Glomerular Filtration Rate 91 mL/min (>60); Est Glom Filt Rate - Afr Amer 110 mL/min (>60); Ferritin 443 ng/mL (8-252); Globulin 4.5 g/dL (2.2-4.2); Glucose 160 mg/dL (74-106); High Density Lipoprotein 14 mg/dL; Iron 66 ug/dL (50-170); Iron Binding Capacity,Total 226 ug/dL (250-450); PERCENT IRON SATURATION 29.2 % (15.0-55.0); Sodium Level 140 mmol/L (136-145); Triglycerides 355 mg/dL; Very Low Density Lipoprotein 71 mg/dL (5-40)
[2024-06-04 08:45] LABS: Microalbumin,Random Urine 5.3 mg/L (NO RANGE EST.); Microalbumin:Creatinine Ratio 9.2 mg/g CRE (<30 mg/g CRE)
[2024-06-04 08:49] LABS: Vitamin D,25 Hydroxy 72.6 ng/mL
== END | disposition home or self-care (01) ==
LOC: PAVLAB 07:56
PROVIDERS: PCP Family Medicine; Referring Provider Family Medicine; Visit Provider Family Medicine
DX: E55.9 Vitamin D deficiency, unspecified (principal); E11.65 Type 2 diabetes mellitus with hyperglycemia; E78.00 Pure hypercholesterolemia, unspecified
CPT/HCPCS: 36415; 80053; 80061; 82043; 82306; 82570; 82728; 83036; 83540; 83550; 85025

== ENCOUNTER → 2024-06-18 | Outpatient (CLI) | payer MEDICARE, SELFPAY ==
--- NOTE | 2024-06-18 08:19 | US_ITS ---
ACR Level 3 findings have been noted. An addendum which confirms receipt of the report will follow. EXAM: US ABDOMEN LIMITED, RIGHT UPPER QUADRANT CLINICAL INDICATION: ABN LIVER FUNCTION TESTS TECHNIQUE: Real-time ultrasound of the right upper quadrant with image documentation. COMPARISON: Gallbladder ultrasound, 05/10/2023 FINDINGS: LIVER: The liver is enlarged measuring 21.4 cm in length and is diffusely heterogenous with lobulated contours indicating cirrhosis. There is a 9.9 x 8.6 x 8.9 cm focal mass within the medial right hepatic lobe which was not identified on prior examination and although nonspecific, in the setting of cirrhosis may indicate hepatocellular carcinoma. GALLBLADDER: There is layering sludge within the gallbladder lumen. No shadowing gallstone. No gallbladder wall thickening is demonstrated. No pericholecystic fluid. Negative sonographic Valentine''s sign. COMMON BILE DUCT: The common bile duct measures 9 mm, slightly greater than expected for age. PANCREAS: Normal as visualized. No focal abnormality is demonstrated in the pancreas. No pancreatic ductal dilatation. RIGHT KIDNEY: Right upper pole renal cyst measuring 2.5 cm present for which no follow-up is indicated. There is no hydronephrosis. No shadowing calculus. US/Abdomen Limited IMPRESSION: The liver is enlarged measuring 21.4 cm in length and is diffusely heterogenous with lobulated contours indicating cirrhosis. There is a 9.9 x 8.6 x 8.9 cm focal mass within the medial right hepatic lobe which was not identified on prior examination and although nonspecific, in the setting of cirrhosis may indicate hepatocellular carcinoma. Recommend dedicated liver MRI for further evaluation. Electronically Signed: Abdiaziz Bonner DO at 20:21 EDT ,
== END | disposition home or self-care (01) ==
PROVIDERS: PCP Family Medicine; Referring Provider Family Medicine; Visit Provider Family Medicine
DX: R79.89 Other specified abnormal findings of blood chemistry (principal)
CPT/HCPCS: 76705